=== PATIENT | male | born 1980 | race Asian ===

== ENCOUNTER 2019-03-21 19:27 | Emergency (ER) | payer BC ==
[~2019-03-21] VITALS: Ht 172.7 cm; Wt 73.2 kg
[2019-03-21 19:31] VITALS: BP 139/83; TEMP 97.7
[2019-03-21 20:00] VITALS: PULSE 67
== END 2019-03-21 20:00 | disposition home or self-care (01) ==
LOC: COL.ER 19:27
DX: S63.290A Dislocation of distal interphalangeal joint of right index finger, initial encounter (principal); W19.XXXA Unspecified fall, initial encounter; Y93.74 Activity, frisbee